=== PATIENT | female | born 1960 | race Caucasian/White ===

== ENCOUNTER 2024-07-01 13:20 | Emergency (ER) | payer OTHER ==
[2024-07-01] MEDS ORDERED: ONDANSETRON 4 MG/2 ML VIAL ONE (15:19)
[2024-07-01] MEDS ORDERED: FAMOTIDINE 20 MG/2 ML VIAL IV ONE (15:19)
[2024-07-01] MEDS ORDERED: NA CHLORIDE 0.9% 1,000 ML ONE (15:20)
[2024-07-01 15:22] LABS: Absolute Eosinophils 0.1 K/uL (0-0.5); Absolute Lymphocytes (CBC) 1.4 K/uL (0.7-4.9); Absolute Monocytes 0.7 K/uL (0.1-1.3); Absolute Neutrophil 8.7 K/uL (1.8-8.0); Basophils % 0.4 % (0-1.3); Eosinophils % 0.6 % (0-4.4); Hematocrit 42.9 % (36.0-45.0); Lymphocytes % 13.1 % (15.3-44.8); MCH 28.9 pg (27.0-35.0); MCHC 32.7 g/dL (32.0-36.0); MCV 88.3 fL (80-100); Monocytes % 6.4 % (3.3-12.3); Neutrophils % 79.5 % (41.7-73.7); Platelets 270 thou/uL (152-406); RBC Red Blood Cell Count 4.85 M/uL (3.86-4.86); Red Cell Distribution Width 12.7 % (12.1-15.2)
[2024-07-01 15:23] LABS: Specific Gravity 1.024 (1.005-1.030); Sqamous Epithelial <5 /HPF (None Seen); Urine Bacteria None Seen /HPF (<20); Urine Bilirubin NEGATIVE (Negative); Urine Blood Negative (Negative); Urine Clarity Clear (Clear); Urine Color Yellow (Yellow); Urine Culture Reflex Order NOT NEEDED; Urine Glucose NEGATIVE (Negative); Urine Ketones 1+ (Negative); Urine Microscopic Reflex YN ORDER UMIC; Urine Mucus Slight /HPF (None Seen); Urine Nitrite NEGATIVE (Negative); Urine Protein NEGATIVE (Negative); Urine RBC <5 /HPF (None Seen); Urine Urobilinogen Normal (Normal); Urine WBC <5 /HPF (<5)
[2024-07-01 15:40] LABS: Albumin 3.4 g/dL (3.4-5.0); Albumin/Globulin Ratio 0.8 (1.1-1.8); Bilirubin Total 0.3 mg/dL (0.2-1.0); Globulin 4.4 g/dL (2.3-3.5); Protein, Total 7.8 g/dL (6.4-8.2); Troponin High Sensitivity 4.1 pg/mL (<58.9)
--- NOTE | 2024-07-01 17:07 | RAD REPORT ---
EXAMINATION: CT Abdomen Pelvis W Contrast CLINICAL INDICATION: Female, 63 years old. ABD PAIN TECHNIQUE: CT abdomen and pelvis was performed, after the administration of IV contrast, [facility]. Axial, sagittal and coronal reconstructions were obtained. One or more of the following dose reduction techniques were used: Automated exposure control, adjustment of the mA and k V according to patient size, and iterative reconstruction. Unless otherwise specified, incidental findings do not require dedicated imaging follow-up. COMPARISON: No prior exam. FINDINGS: LOWER CHEST: The visualized lung bases are clear. LIVER: Normal in size and contour. No focal lesion. BILIARY SYSTEM: Status post cholecystectomy. SPLEEN: Normal size. No focal lesion. PANCREAS: No mass, ductal dilation, or wally-pancreatic fluid. ADRENALS: Normal; no mass. KIDNEYS: Normal size and contour. No hydronephrosis. URINARY BLADDER: Unremarkable. GASTROINTESTINAL TRACT: No evidence of free air, significant intra-abdominal free fluid, bowel obstru ction or abscess. Mild sigmoid diverticulosis. APPENDIX: Normal appendix. LYMPH NODES: No lymphadenopathy. MUSCULOSKELETAL: No acute or suspicious osseous abnormality. ADDITIONAL FINDINGS: None. IMPRESSION: No acute or concerning abnormalities seen in the abdomen or pelvis. Mild sigmoid diverticulosis incidentally noted.
--- NOTE | 2024-07-01 17:09 | EDPHYS ---
Physician Documentation [facility] Name: Milagro Cortez Age: 63 yrs Sex: Female : 1960 Arrival Date: 07/01/2024 Time: 13:20 Bed 8 Private MD: ED Physician Tony Crum HPI: 07/01 15:12 This 63 yrs old Female presents to ER via Wheelchair with complaints of nguyễn Abdominal Pain. 15:12 The patient presents with abdominal pain in the upper abdomen, in the lower abdomen, nguyễn abdominal distention in the upper abdomen, in the lower abdomen. Onset: The symptoms/episode began/occurred just prior to arrival, today. The symptoms radiate to Associated signs and symptoms: Pertinent positives: nausea, vomiting. The symptoms are described as crampy. Modifying factors: The symptoms are alleviated by nothing, the symptoms are aggravated by nothing. Severity of pain: At its worst the pain was moderate severe in the emergency department the pain has improved moderately. The patient has not experienced similar symptoms in the past. Historical: - Allergies: 14:10 Codeine; ss - Home Meds: 14:10 AMUEVITA [Active]; ss - PMHx: 14:10 Arthritis; ss - Immunization history:: Adult Immunizations up to date. - Infectious Disease History:: Denies. - Social history:: Smoking status: unknown. - Family history:: not pertinent. ROS: 15:12 Constitutional: Negative for fever, chills, and weight loss, Eyes: Negative for injury, nguyễn pain, redness, and discharge, ENT: Negative for injury, pain, and discharge, Neck: Negative for injury, pain, and swelling, Cardiovascular: Negative for chest pain, palpitations, and edema, Respiratory: Negative for shortness of breath, cough, wheezing, and pleuritic chest pain, Back: Negative for injury and pain, : Negative for injury, bleeding, discharge, and swelling, MS/Extremity: Negative for injury and deformity, Skin: Negative for injury, rash, and discoloration, Neuro: Negative for headache, weakness, numbness, tingling, and seizure, Psych: Negative for depression, anxiety, suicide ideation, homicidal ideation, and hallucinations, Allergy/Immunology: Negative for hives, rash, and allergies, Endocrine: Negative for neck swelling, polydipsia, polyuria, polyphagia, and marked weight changes, Hematologic/Lymphatic: Negative for swollen nodes, abnormal bleeding, and unusual bruising, 15:12 Abdomen/GI: Positive for abdominal pain, nausea and vomiting, of the right upper quadrant, left upper quadrant, right lower quadrant and left lower quadrant, Exam: 15:12 Constitutional: This is a well developed, well nourished patient who is awake, alert, nguyễn and in no acute distress. Head/Face: Normocephalic, atraumatic. Eyes: Pupils equal round and reactive to light, extra-ocular motions intact. Lids and lashes normal. Conjunctiva and sclera are non-icteric and not injected. Cornea within normal limits. Periorbital areas with no swelling, redness, or edema. ENT: Nares patent. No nasal discharge, no septal abnormalities noted. Tympanic membranes are normal and external auditory canals are clear. Oropharynx with no redness, swelling, or masses, exudates, or evidence of obstruction, uvula midline. Mucous membranes moist. Neck: Trachea midline, no thyromegaly or masses palpated, and no cervical lymphadenopathy. Supple, full range of motion without nuchal rigidity, or vertebral point tenderness. No Meningismus. Chest/axilla: Normal chest wall appearance and motion. Nontender with no deformity. No lesions are appreciated. Cardiovascular: Regular rate and rhythm with a normal S1 and S2. No gallops, murmurs, or rubs. Normal PMI, no JVD. No pulse deficits. Respiratory: Lungs have equal breath sounds bilaterally, clear to auscultation and percussion. No rales, rhonchi or wheezes noted. No increased work of breathing, no retractions or nasal flaring. Back: No spinal tenderness. No costovertebral tenderness. Full range of motion. Female : Normal external genitalia. Skin: Warm, dry with normal turgor. Normal color with no rashes, no lesions, and no evidence of cellulitis. MS/ Extremity: Pulses equal, no cyanosis. Neurovascular intact. Full, normal range of motion. Neuro: Awake and alert, GCS 15, oriented to person, place, time, and situation. Cranial nerves II-XII grossly intact. Motor strength 5/5 in all extremities. Sensory grossly intact. Cerebellar exam normal. Normal gait. Psych: Awake, alert, with orientation to person, place and time. Behavior, mood, and affect are within normal limits. 15:12 Abdomen/GI: Inspection: abdomen appears normal, Bowel sounds: normal, Palpation: mild abdominal tenderness, in the right lower quadrant and left lower quadrant, Liver: no appreciated palpable abnormalities, Hernia: not appreciated, 16:39 ECG was reviewed by the Attending Physician. [facility] Vital Signs: 14:09 BP 167 / 87; Pulse 99; Resp 16; Temp 98; Pulse Ox 99% ; ss 15:30 BP 148 / 70; Pulse 79; Resp 16; Pulse Ox 98% ; cm10 16:30 BP 151 / 76; Pulse 91; Resp 16; Pulse Ox 100% on R/A; cm10 17:00 BP 144 / 77; Pulse 90; Resp 16; Pulse Ox 98% on R/A; cm10 17:29 BP 144 / 77; Pulse 87; Resp 16; Pulse Ox 99% on R/A; ll1 MDM: 13:26 Medical Screening Exam initiated nguyễn 15:15 Differential diagnosis: AAA, appendicitis, bowel obstruction, diverticulitis, nguyễn gastritis, gastroesophageal reflux disease, GI Bleed, Mesenteric ischemia or infarction, non-specific abd pain, pancreatitis, Peptic Ulcer Disease, Peritonitis, Pyelonephritis, Ureterolithiasis, urinary tract infection. Data reviewed: vital signs, nurses notes, EMS record, lab test result(s), EKG, radiologic studies, CT scan, plain films. Consideration of Admission/Observation Escalation of care including admission/observation considered. I considered the following discharge prescriptions or medication management in the emergency department Medications were administered in the Emergency Department. See MAR. Independent interpretation of the following test(s) in the Emergency Department EKG: See my EKG interpretation above. Historians other than the Patient:. 07/01 13:27 Order name: CBC with Diff; Complete Time: 15:45 [facility] 07/01 13:27 Order name: CMP; Complete Time: 15:45 [facility] 07/01 13:27 Order name: Lipase; Complete Time: 15:45 [facility] 07/01 13:27 Order name: Urinalysis w/ reflexes; Complete Time: 15:31 [facility] 07/01 13:27 Order name: Troponin High Sensitivity; Complete Time: 15:45 [facility] 07/01 13:27 Order name: CT Abd/Pelvis - IV Contrast Only [facility] 07/01 13:27 Order name: EKG; Complete Time: 13:27 [facility] 07/01 13:27 Order name: IV Saline Lock; Complete Time: 15:15 [facility] 07/01 13:27 Order name: Labs collected and sent; Complete Time: 15:15 [facility] 07/01 13:27 Order name: EKG - Nurse/Tech; Complete Time: 15:43 [facility] EC:39 Rate is 71 beats/min. Rhythm is regular. QRS [place] is Normal. GA interval is normal. QRS nguyễn interval is normal. QT interval is normal. No Q waves. T waves are Normal. No ST changes noted. Clinical impression: Normal ECG and No evidence of ischemia. Interpreted by me. Reviewed by me. Administered Medications: 15:27 Drug: Famotidine IVP 20 mg IVP once; dilute with 10 mL 0.9% NaCl; give over 2 minutes cm10 Route: IVP; Site: right forearm; 16:20 Follow up: Response: No adverse reaction cm10 15:27 Drug: Ondansetron IVP 4 mg IVP once; over 2 minutes Route: IVP; Site: right forearm; cm10 17:29 Follow up: Response: No adverse reaction ll1 15:27 Drug: NS 0.9% IV 1000 ml IV at 1 bolus Per protocol; to be given as a bolus over 60 cm10 minutes Route: IV; Rate: 1 bolus; Site: right forearm; 17:10 Follow up: Response: No adverse reaction; IV Status: Completed infusion; IV Intake: cm10 1000ml 17:29 Not Given (Patient Refused): morphineor iv 4 mg IVP once over 4 mins ll1 Disposition Summary: 07/01/24 17:08 Discharge Ordered Notes: Location: Home nguyễn Problem: new nguyễn Symptoms: have improved nguyễn Condition: Stable nguyễn Diagnosis - Abdominal pain, Generalized nguyễn Followup: nguyễn - With: Private Physician - When: 2 - 3 days - Reason: Recheck today's complaints, Continuance of care, Re-evaluation by your physician Followup: nguyễn - With: Stevie Pearce MD - When: 2 - 3 days - Reason: Recheck today's complaints, Re-evaluation by your physician Discharge Instructions: - Discharge Summary Sheet nguyễn - Abdominal Pain, Adult nguyễn - Abdominal Pain, Adult, [id number] nguyễn Forms: - Medication Reconciliation Form nguyễn - Antibiotic Education nguyễn - Prescription Opioid Use nguyễn - Patient Portal Instructions nguyễn - Leadership Thank You Letter nguyễn Prescriptions: - ondansetron 4 mg Oral Tablet,disintegrating - take 1 tablet ORAL route every 8 hours for 5 days as needed for nausea and nguyễn vomiting; 20 tablet; Refills: 0, Product Selection Permitted - Pepcid 20 mg Oral Tablet - take 1 tablet ORAL route every 12 hours for 10 days; 20 tablet; Refills: 0, [facility] Product Selection Permitted - dicyclomine 20 mg Oral tablet - take 1 tablet ORAL route 4 times per day; 28 tablet; Refills: 0, Product [facility] Selection Permitted Signatures: Dispatcher [employer] Tony Bob MD MD cha Blanchard, [place], MACIEL RN ss Starr Oropeza RN RN cm10 Corrina Milligan RN ll1
--- NOTE | 2024-07-01 17:09 | ER ---
Nurse's Notes [facility] Name: Milagro Cortez Age: 63 yrs Sex: Female : 1960 Arrival Date: 07/01/2024 Time: 13:20 Bed 8 Private MD: Diagnosis: Abdominal pain, Generalized Presentation: 07/01 14:09 Chief complaint: Patient states: "I HAD TUMMY GAS AFTER LUNCH, BUT I'M FEELING ss BETTER.". Coronavirus screen: At this time, the client does not indicate any symptoms associated with coronavirus-19. Ebola Screen: No symptoms or risks identified at this time. Initial Sepsis Screen: Does the patient meet any 2 criteria? No. Patient's initial sepsis screen is negative. Does the patient have a suspected source of infection? No. Patient's initial sepsis screen is negative. Risk Assessment: Do you want to hurt yourself or someone else? Patient reports no desire to harm self or others. Onset of symptoms was July 01, 2024 at 12:30. 14:09 Method Of Arrival: Wheelchair ss 14:09 Acuity: KJ 3 ss Triage Assessment: 14:10 General: Appears in no apparent distress. Behavior is cooperative, appropriate for age, ss anxious. Pain: Complains of pain in right lower quadrant and left lower quadrant. EENT: No deficits noted. Neuro: No deficits noted. Cardiovascular: No deficits noted. Respiratory: No deficits noted. GI: Reports lower abdominal pain. : No signs and/or symptoms were reported regarding the genitourinary system. Derm: No deficits noted. Musculoskeletal: No deficits noted. Historical: - Allergies: 14:10 Codeine; ss - Home Meds: 14:10 AMUEVITA [Active]; ss - PMHx: 14:10 Arthritis; ss - Immunization history:: Adult Immunizations up to date. - Infectious Disease History:: Denies. - Social history:: Smoking status: unknown. - Family history:: not pertinent. Screenin:30 [facility] ED Fall Risk Assessment (Adult) History of falling in the last 3 months, ll1 including since admission No falls in past 3 months (0 pts) Confusion or Disorientation No (0 pts) Intoxicated or Sedated No (0 pts) Impaired Gait No (0 pts) Mobility Assist Device Used No (0 pt) Altered Elimination No (0 pt) Score/Fall Risk Level 0 - 2 = Low Risk Maintained a safe environment, Hourly rounding (assess needs \\T\\ fall precautionary measures) done. Abuse screen: Denies threats or abuse. Nutritional screening: No deficits noted. Tuberculosis screening: No symptoms or risk factors identified. Assessment: 14:37 Reassessment: Patient and/or family updated on plan of care and expected duration. Pain ll1 level reassessed. 16:09 Reassessment: Patient appears in no apparent distress at this time. No changes from cm10 previously documented assessment. Patient and/or family updated on plan of care and expected duration. Pain level reassessed. Patient is alert, oriented x 3, equal unlabored respirations, skin warm/dry/pink. Patient states feeling better. Patient states symptoms have improved. 17:30 Reassessment: No changes from previously documented assessment. Patient and/or family ll1 updated on plan of care and expected duration. Pain level reassessed. 17:30 GI: Bowel sounds present X 4 quads. Abd is soft and non tender X 4 quads. ll1 Vital Signs: 14:09 BP 167 / 87; Pulse 99; Resp 16; Temp 98; Pulse Ox 99% ; ss 15:30 BP 148 / 70; Pulse 79; Resp 16; Pulse Ox 98% ; cm10 16:30 BP 151 / 76; Pulse 91; Resp 16; Pulse Ox 100% on R/A; cm10 17:00 BP 144 / 77; Pulse 90; Resp 16; Pulse Ox 98% on R/A; cm10 17:29 BP 144 / 77; Pulse 87; Resp 16; Pulse Ox 99% on R/A; ll1 ED Course: 13:23 Patient arrived in ED. mr 13:26 Tony Crum MD is Attending Physician. nguyễn 14:10 Triage completed. ss 14:10 Arm band placed on. ss 14:33 Patient placed in an exam room, on a stretcher. ll1 15:14 Starr Oropeza, RN is Primary Nurse. cm10 15:15 Initial lab(s) drawn, by ga, sent to lab. Urine collected: clean catch specimen. cm10 Inserted saline lock: 20 gauge in right forearm, using aseptic technique. Blood collected. Flushed with 10 mL NS. 15:15 Troponin High Sensitivity Sent. cm10 15:15 CBC with Diff Sent. cm10 15:15 CMP Sent. cm10 15:15 Lipase Sent. cm10 15:15 Urinalysis w/ reflexes Sent. cm10 16:54 CT Abd/Pelvis - IV Contrast Only In Process Unspecified. EDPA 17:08 Stevie Pearce MD is Referral Physician. [facility] 17:30 No provider procedures requiring assistance completed. IV discontinued, intact, ll1 bleeding controlled, No redness/swelling at site. Pressure dressing applied. 17:31 Patient has correct armband on for positive identification. Provided Education on: ll1 return to ED for worsening symptoms. Administered Medications: 15:27 Drug: Famotidine IVP 20 mg IVP once; dilute with 10 mL 0.9% NaCl; give over 2 minutes cm10 Route: IVP; Site: right forearm; 16:20 Follow up: Response: No adverse reaction cm10 15:27 Drug: Ondansetron IVP 4 mg IVP once; over 2 minutes Route: IVP; Site: right forearm; cm10 17:29 Follow up: Response: No adverse reaction ll1 15:27 Drug: NS 0.9% IV 1000 ml IV at 1 bolus Per protocol; to be given as a bolus over 60 cm10 minutes Route: IV; Rate: 1 bolus; Site: right forearm; 17:10 Follow up: Response: No adverse reaction; IV Status: Completed infusion; IV Intake: cm10 1000ml 17:29 Not Given (Patient Refused): morphineor iv 4 mg IVP once over 4 mins ll1 Medication: 17:31 VIS not applicable for this client. ll1 Intake: 17:10 IV: 1000ml; Total: 1000ml. cm10 Outcome: 17:08 Discharge ordered by . [facility] 17:30 Discharged to home ambulatory, ll1 17:30 Condition: stable 17:30 Discharge instructions given to patient, Instructed on discharge instructions, follow up and referral plans. medication usage, Demonstrated understanding of instructions, follow-up care, medications, Prescriptions given X 3, 17:31 Patient left the ED. ll1 Signatures: Dispatcher [employer] EDPA Tony Crum MD MD cha Rivera, Mary, Reg Reg Salma Harris, RN RN Corrina Fisher RN RN ll1 Starr Oropeza RN RN cm10
[2024-07-01 17:47] VITALS: TEMP 98
[2024-07-01 17:59] VITALS: BP 144/77
[2024-07-01 18:02] VITALS: O2SAT 99
--- NOTE | 2024-07-02 08:52 | EKG ---
Test Date: 2024-07-01 Test Time: 15:39:44 Clinical Rehab Specialist: AM MEASUREMENT RESULTS: Intervals: Rate: 71 TX: 162 QRSD: 78 QT: 420 QTc: 456 [place]: P: 69 TX: 162 QRS: 11 T: 16 INTERPRETIVE STATEMENTS: Normal sinus rhythm Normal ECG Compared to ECG 01/17/2006 07:40:16 No significant changes Electronically Signed On 07-02-24 08:50:58 OPTICAL SYSTEMS ENGINEER by Yasir Shearer
== END 2024-07-01 17:31 | disposition home or self-care (01) ==
LOC: ER 13:20
DX: R10.84 Generalized abdominal pain (principal); R11.2 Nausea with vomiting, unspecified
CPT/HCPCS: 93005; 85025; 81001; 36415; 84484; 83690; 80053; 74177; Q9967; J2405; J7030; 96361; 96374; 96375; 99284

== ENCOUNTER 2024-07-12 08:41 | Emergency (ER) | payer OTHER ==
[2024-07-12] MEDS ORDERED: ONDANSETRON 4 MG/2 ML VIAL ONE (09:34)
[2024-07-12] MEDS ORDERED: NA CHLORIDE 0.9% 1,000 ML ONE (09:35)
[2024-07-12] MEDS ORDERED: FENTANYL CITR 100 MCG/2 ML ONE (09:35)
--- NOTE | 2024-07-12 09:49 | RAD REPORT ---
EXAM: CT Head Brain Wo Cont HISTORY: HEADACHE COMPARISON: None TECHNIQUE: Multiple contiguous axial images were obtained for a CT of the brain without contrast. Sag ittal and coronal reformats were performed. One or more of the following dose reduction techniques were used: Automated exposure control, adjus tment of the mA and kV according to patient size, and iterative reconstruction. Unless otherwise specified, incidental findings do not require dedicated imaging follow-up. FINDINGS: No evidence of hydrocephalus, intracranial hemorrhage, or extra-axial fluid collection. The brain is normal in morphology. The calvarium is intact. The visualized paranasal sinuses and mastoid air cells are essentially clear . IMPRESSION: No evidence of acute intracranial abnormality.
[2024-07-12 09:59] LABS: Absolute Eosinophils 0.1 K/uL (0-0.5); Absolute Lymphocytes (CBC) 1.3 K/uL (0.7-4.9); Absolute Monocytes 0.5 K/uL (0.1-1.3); Absolute Neutrophil 3.3 K/uL (1.8-8.0); Basophils % 0.6 % (0-1.3); Eosinophils % 1.1 % (0-4.4); Hematocrit 42.2 % (36.0-45.0); Hemoglobin 13.9 g/dL (12.0-15.0); Lymphocytes % 25.2 % (15.3-44.8); MCH 29.1 pg (27.0-35.0); MPV 7.8 fL (7.6-11.3); Monocytes % 10.1 % (3.3-12.3); Platelets 289 thou/uL (152-406); RBC Red Blood Cell Count 4.79 M/uL (3.86-4.86); Red Cell Distribution Width 12.7 % (12.1-15.2)
[2024-07-12 10:00] LABS: PT Prothrombin Time 10.3 SECONDS (9.4-12.5); Protime INR 0.92
[2024-07-12 10:25] LABS: ALT/SGPT 18 U/L (13-56); AST/SGOT 16 U/L (15-37); Albumin 3.3 g/dL (3.4-5.0); Albumin/Globulin Ratio 0.7 (1.1-1.8); Alkaline Phosphatase 92 U/L (45-117); Anion Gap 7.7 mEq/L (5.0-15.0); BUN Blood Urea Nitrogen 10 mg/dL (7-18); Bicarbonate 26 mEq/L (21-32); Bilirubin Total 0.4 mg/dL (0.2-1.0); Globulin 4.5 g/dL (2.3-3.5); Glomerular Filtration Rate 100 ml/min (=/>90); Glucose Level 107 mg/dL (74-106); Magnesium 2.1 mg/dL (1.6-2.4); NT PRO-BNP 245 pg/mL (<125); Potassium 3.7 mEq/L (3.5-5.1); Protein, Total 7.8 g/dL (6.4-8.2); Sodium Level 136 mEq/L (136-145); Troponin High Sensitivity 3.7 pg/mL (<58.9)
[2024-07-12 10:27] LABS: Bilirubin Direct < 0.2 mg/dL (0-0.2); Bilirubin Indirect, Calculated 0.2 mg/dL (0.2-0.8)
--- NOTE | 2024-07-12 10:30 | RAD REPORT ---
EXAMINATION: ONE VIEW CHEST XR CLINICAL INDICATION: Female, 63 years old.,COUGH TECHNIQUE: Frontal chest projection is submitted. Examination is limited by patient positioning and t echnique. COMPARISON: No prior exam. FINDINGS: Right central mid to lower lung patchy airspace opacity. Trace effusion along the right minor fissure . No pneumothorax or other sizable effusion. The heart is normal in size. Mediastinal contours are unremarkable. IMPRESSION: Right central mid to lower lung airspace opacity, concerning for pneumonia.
[2024-07-12 11:45] LABS: Specific Gravity 1.017 (1.005-1.030); Sqamous Epithelial <5 /HPF (None Seen); Urine Bacteria None Seen /HPF (<20); Urine Bilirubin NEGATIVE (Negative); Urine Blood Negative (Negative); Urine Clarity Extremely Turbid (Clear); Urine Color Light-Yellow (Yellow); Urine Culture Reflex Order NOT NEEDED; Urine Glucose NEGATIVE (Negative); Urine Ketones 1+ (Negative); Urine Microscopic Reflex YN ORDER UMIC; Urine Mucus Slight /HPF (None Seen); Urine Nitrite NEGATIVE (Negative); Urine Protein NEGATIVE (Negative); Urine RBC <5 /HPF (None Seen); Urine Urobilinogen Normal (Normal); Urine WBC <5 /HPF (<5)
[2024-07-12] MEDS ORDERED: METOCLOPRAMIDE 10 MG/2mL INJ ONE (12:04)
[2024-07-12] MEDS ORDERED: KETOROLAC 30 MG/ML INJ ONE (12:04)
[2024-07-12] MEDS ORDERED: AMLODIPINE 5 MG TAB ONE ×2 (12:04→12:24)
[2024-07-12] MEDS ORDERED: DIPHENHYDRAMINE 50 MG/ML VIAL ONE (12:04)
[2024-07-12] MEDS ORDERED: Levofloxacin500mg IV 500 MG/100 ML BAG IV ONE (12:05)
--- NOTE | 2024-07-12 12:13 | RAD REPORT ---
EXAM: CT Chest For Pe Angio TECHNIQUE: CT angiogram of the chest was performed following intravenous contrast administration, inc luding sagittal and coronal as well as maximum intensity projection reformats. One or more of the following dose reduction techniques were used: Automated exposure control, adjustment of the mA and k V according to patient size, and iterative reconstruction. Unless otherwise specified, incidental findings do not require dedicated imaging follow-up. INDICATION: [facility] MAIN Congestion;Cough Bed Name: 18 N COMPARISON: Chest radiograph of earlier the same day. FINDINGS: LINES/TUBES: None. PULMONARY ARTERIES: Main pulmonary arteries are normal in caliber. No filling defects within the pul monary arteries to suggest pulmonary embolus. LUNGS AND AIRWAYS: Biapical scarring more pronounced on the right. Patchy consolidative opacities wit h limited peripheral air bronchogram and mild bronchiectasis in the right middle lobe. Confluent nodular and tree-in-bud opacities in the posterior right lower lobe as well. Minimal left lingular at electasis. PLEURA: Trace right layering pleural effusion. No pneumothorax. HEART AND MEDIASTINUM: The visualized thyroid gland is normal. Mildly prominent right hilar lymph nod es, up to 1.2 cm in short axis. Less prominent mediastinal lymph nodes. These are favored to be reactive. Heart is unremarkable. No pericardial effusion. SOFT TISSUES AND BONES: No acute osseous abnormality. No significant soft tissue finding. UPPER ABDOMEN: Unremarkable. IMPRESSION: No evidence of acute central pulmonary emboli. Patchy right middle lobe and posterior right lower lobe airspace opacities as above, concerning for p neumonia. Trace layering right pleural effusion. Suspected background changes of atelectasis and bronchiectasis in the right middle lobe may be more c hronic.
--- NOTE | 2024-07-12 12:19 | ER ---
Nurse's Notes [facility] Name: Milagro Cortez Age: 63 yrs Sex: Female : 1960 Arrival Date: 07/12/2024 Time: 08:41 Bed 18 Private MD: Diagnosis: Essential (primary) hypertension;Cough;Headache;UTI/ Urinary tract infection, site not specified;Pneumonia due to other specified bacteria;Pleural effusion, not elsewhere classified-right;Bronchiectasis, uncomplicated Presentation: 07/12 09:13 Chief complaint: Patient states: Sent home from work due to high blood pressure reading ss of 160/140. Pt reports her BP last night was 137/77 and in the middle of the night it woke her up and was 158/77. Pt c/o right sided headache since yesterday at 0700. Coronavirus screen: Client denies travel out of the [place] in the last 14 days. Ebola Screen: Patient denies exposure to infectious person. Patient denies travel to an Ebola-affected area in the 21 days before illness onset. Initial Sepsis Screen: Does the patient meet any 2 criteria? No. Patient's initial sepsis screen is negative. Does the patient have a suspected source of infection? No. Patient's initial sepsis screen is negative. Risk Assessment: Do you want to hurt yourself or someone else? Patient reports no desire to harm self or others. Onset of symptoms was July 11, 2024. 09:13 Method Of Arrival: Wheelchair ss 09:13 Acuity: KJ 3 ss Historical: - Allergies: 09:17 Codeine; ss - PMHx: 09:17 Arthritis; ss - Immunization history:: Client reports having NOT received the Covid vaccine. - Infectious Disease History:: Denies. - Social history:: Smoking status: Patient denies any tobacco usage or history of. Screenin:08 [facility] ED Fall Risk Assessment (Adult) History of falling in the last 3 months, hb including since admission No falls in past 3 months (0 pts) Confusion or Disorientation No (0 pts) Intoxicated or Sedated No (0 pts) Impaired Gait No (0 pts) Mobility Assist Device Used No (0 pt) Altered Elimination No (0 pt) Score/Fall Risk Level 0 - 2 = Low Risk Oriented to surroundings, Maintained a safe environment, Educated pt \T\ family on fall prevention, incl call for assistance when getting out of bed. Abuse screen: Denies threats or abuse. Denies injuries from another. Nutritional screening: No deficits noted. Tuberculosis screening: No symptoms or risk factors identified. Assessment: 10:08 General: Appears in no apparent distress. uncomfortable, Behavior is calm, cooperative. hb Pain: Pain currently is 7 out of 10 on a pain scale. Neuro: Level of Consciousness is awake, alert, obeys commands, Oriented to person, place, time, situation, Reports headache. Cardiovascular: Patient's skin is warm and dry. Respiratory: Respiratory effort is even, unlabored, Respiratory pattern is regular, symmetrical. GI: Reports nausea. : No signs and/or symptoms were reported regarding the genitourinary system. EENT: No signs and/or symptoms were reported regarding the EENT system. Derm: Skin is pink, warm \T\ dry. Musculoskeletal: No signs and/or symptoms reported regarding the musculoskeletal system. 12:36 Reassessment: Patient appears in no apparent distress at this time. Patient and/or hb family updated on plan of care and expected duration. Pain level reassessed. Patient is alert, oriented x 3, equal unlabored respirations, skin warm/dry/pink. 13:15 Reassessment: Patient appears in no apparent distress at this time. Patient and/or hb family updated on plan of care and expected duration. Pain level reassessed. Patient is alert, oriented x 3, equal unlabored respirations, skin warm/dry/pink. Vital Signs: 09:13 BP 169 / 91; Pulse 87; Resp 17; Temp 98(TE); Pulse Ox 100% on R/A; Weight 72.57 kg; ss Height 5 ft. 4 in. ; Pain 7/10; 09:20 BP 160 / 84; ss 10:00 BP 162 / 83; Pulse 81; Resp 16; Pulse Ox 100% on R/A; Pain 7/10; hb 12:36 BP 159 / 107; Pulse 86; Resp 16; Pulse Ox 100% on R/A; hb 13:15 BP 146 / 86; Pulse 69; Resp 16; Pulse Ox 99% on R/A; hb 09:13 Body Mass Index 27.46 (72.57 kg, 162.56 cm) ss 09:13 Pain Scale: Adult ss 10:00 Pain Scale: Adult hb Kaylee Coma Score: 11:15 Eye Response: spontaneous(4). Motor Response: obeys commands(6). Verbal Response: nguyễn oriented(5). Total: 15. ED Course: 08:45 Patient arrived in ED. mg5 08:53 Tony Crum MD is Attending Physician. nguyễn 09:06 XRAY Chest (1 view) In Process Unspecified. EDMS 09:13 CT Head Brain wo Cont In Process Unspecified. EDMS 09:17 Triage completed. ss 09:17 Arm band placed on right wrist. ss 09:25 Swetha Rueda, RN is Primary Nurse. hb 09:52 Initial lab(s) drawn, by md, sent to lab. Inserted saline lock: 20 gauge in right zm forearm, using aseptic technique. Blood collected. Flushed with 10 mL NS. 09:53 EKG done, by ED staff, reviewed by Tony Crum MD. zm 09:53 Basic Metabolic Panel Sent. zm 09:53 CBC with Diff Sent. zm 09:53 LFT's Sent. zm 09:53 Magnesium Sent. zm 09:53 NT PRO-BNP Sent. zm 09:53 PT-INR Sent. zm 09:53 Troponin HS Sent. zm 10:08 Patient has correct armband on for positive identification. Placed in gown. Bed in low hb position. Call light in reach. Side rails up X 1. Provided Education on: tests, result times, use of call light. Client placed on continuous cardiac and pulse oximetry monitoring. NIBP monitoring applied. residential monitor on. Pulse ox on. NIBP on. 10:08 No provider procedures requiring assistance completed. hb 11:43 CT Chest For PE Angio In Process Unspecified. EDMS 12:19 Cornel Ott DO is Referral Physician. nguyễn 12:19 Kike Velarde MD is Referral Physician. nguyễn 13:15 IV discontinued, intact, bleeding controlled, No redness/swelling at site. Pressure hb dressing applied. Administered Medications: 09:53 Drug: NS 0.9% IV 500 ml IV at bolus once; to be given as a bolus over 30 minutes Route: hb IV; Rate: bolus; Site: right antecubital; 10:25 Follow up: Response: No adverse reaction; IV Status: Completed infusion; IV Intake: hb 500ml 09:53 Drug: Ondansetron IVP 4 mg IVP once; over 2 minutes Route: IVP; Site: right antecubital;hb 10:20 Follow up: Response: No adverse reaction hb 09:54 Drug: fentaNYL (PF) IVP 50 mcg IVP once Route: IVP; Site: right antecubital; hb 10:12 Drug: fentaNYL (PF) IVP 50 mcg IVP once Route: IVP; Site: right antecubital; hb 10:45 Follow up: Response: No adverse reaction hb 11:25 Drug: NS 0.9% IV 500 ml 500 ml IV at 1 bolus once; to be given as a bolus over 30 hb minutes Volume: 500 ml; Route: IV; Rate: 1 bolus; Site: right antecubital; 12:00 Follow up: Response: No adverse reaction; IV Status: Completed infusion; IV Intake: hb 500ml 12:32 Drug: Ketorolac IVP 15 mg IVP once Route: IVP; Site: right antecubital; hb 13:00 Follow up: Response: No adverse reaction hb 12:32 Drug: diphenhydrAMINE IVP 25 mg IVP once Route: IVP; Site: right antecubital; hb 13:00 Follow up: Response: No adverse reaction hb 12:32 Drug: metoCLOPramide IVP 10 mg IVP once; over 1 to 2 minutes Route: IVP; Site: right hb antecubital; 13:00 Follow up: Response: No adverse reaction hb 12:32 Drug: Norvasc PO 5 mg PO once Route: PO; hb 13:45 Follow up: Response: No adverse reaction hb 12:33 Drug: levofloxacin IVPB 500 mg 100 ml IVPB once over 60 mins Volume: 100 ml; Route: hb IVPB; Infused Over: 60 mins; Site: right antecubital; 13:30 Follow up: Response: No adverse reaction; IV Status: Completed infusion; IV Intake: hb 100ml Medication: 10:08 VIS not applicable for this client. hb Intake: 10:25 IV: 500ml; Total: 500ml. hb 12:00 IV: 500ml; Total: 1000ml. hb 13:30 IV: 100ml; Total: 1100ml. hb Outcome: 12:19 Discharge ordered by . nguyễn 13:31 Discharged to home via wheelchair, with significant other, hb 13:31 Condition: stable 13:31 Discharge instructions given to patient, significant other, Instructed on discharge instructions, follow up and referral plans. medication usage, Demonstrated understanding of instructions, follow-up care, medications, Prescriptions given X 3, 13:32 Patient left the ED. Signatures: Dispatcher [employer] EDTony Shi MD MD cha Blanchard, Shelby, RN RN ss Baxter, Heather, RN RN hb Martinez, Zaina zm [facility]5
--- NOTE | 2024-07-12 12:20 | EDPHYS ---
Physician Documentation [facility] Name: Milagro Cortez Age: 63 yrs Sex: Female : 1960 Arrival Date: 07/12/2024 Time: 08:41 Bed 18 Private MD: [facility]INA Physician Tony Crum HPI: 07/12 11:13 This 63 yrs old Female presents to ER via Wheelchair with complaints of High nguyễn Blood Pressure, Headache. 11:13 The patient has elevated blood pressure and discovered this at home, during work nguyễn physical. Onset: The symptoms/episode began/occurred 3 day(s) ago. Modifying factors: The symptoms are aggravated by activity, The symptoms are alleviated by remaining still. Associated signs and symptoms: Pertinent positives: nausea. Severity of symptoms: At its worst the blood pressure was mild, in the emergency department the blood pressure is unchanged. The patient has not experienced similar symptoms in the past. Historical: - Allergies: 09:17 Codeine; ss - PMHx: :17 Arthritis; ss - Immunization history:: Client reports having NOT received the Covid vaccine. - Infectious Disease History:: Denies. - Social history:: Smoking status: Patient denies any tobacco usage or history of. ROS: 11:14 Constitutional: Negative for fever, chills, and weight loss, Eyes: Negative for injury, nguyễn pain, redness, and discharge, ENT: Negative for injury, pain, and discharge, Neck: Negative for injury, pain, and swelling, Cardiovascular: Negative for chest pain, palpitations, and edema, Respiratory: Negative for shortness of breath, cough, wheezing, and pleuritic chest pain, Abdomen/GI: Negative for abdominal pain, nausea, vomiting, diarrhea, and constipation, Back: Negative for injury and pain, : Negative for injury, bleeding, discharge, and swelling, MS/Extremity: Negative for injury and deformity, Skin: Negative for injury, rash, and discoloration, Psych: Negative for depression, anxiety, suicide ideation, homicidal ideation, and hallucinations, Allergy/Immunology: Negative for hives, rash, and allergies, Endocrine: Negative for neck swelling, polydipsia, polyuria, polyphagia, and marked weight changes, Hematologic/Lymphatic: Negative for swollen nodes, abnormal bleeding, and unusual bruising, 11:14 Neuro: Positive for headache, weakness, Exam: 11:14 Constitutional: This is a well developed, well nourished patient who is awake, alert, nguyễn and in no acute distress. Head/Face: Normocephalic, atraumatic. Eyes: Pupils equal round and reactive to light, extra-ocular motions intact. Lids and lashes normal. Conjunctiva and sclera are non-icteric and not injected. Cornea within normal limits. Periorbital areas with no swelling, redness, or edema. ENT: Nares patent. No nasal discharge, no septal abnormalities noted. Tympanic membranes are normal and external auditory canals are clear. Oropharynx with no redness, swelling, or masses, exudates, or evidence of obstruction, uvula midline. Mucous membranes moist. Neck: Trachea midline, no thyromegaly or masses palpated, and no cervical lymphadenopathy. Supple, full range of motion without nuchal rigidity, or vertebral point tenderness. No Meningismus. Chest/axilla: Normal chest wall appearance and motion. Nontender with no deformity. No lesions are appreciated. Respiratory: Lungs have equal breath sounds bilaterally, clear to auscultation and percussion. No rales, rhonchi or wheezes noted. No increased work of breathing, no retractions or nasal flaring. Abdomen/GI: Soft, non-tender, with normal bowel sounds. No distension or tympany. No guarding or rebound. No evidence of tenderness throughout. Back: No spinal tenderness. No costovertebral tenderness. Full range of motion. Skin: Warm, dry with normal turgor. Normal color with no rashes, no lesions, and no evidence of cellulitis. 11:14 Cardiovascular: Rate: normal, actual rate is 81 bpm, Rhythm: regular, Pulses: Pulses are 4+ in bilateral radial, brachial, femoral, popliteal, posterior tibial and and dorsalis pedis arteries.. Heart sounds: normal, Edema: is not appreciated, JVD: is not appreciated, 11:14 ECG was reviewed by the Attending Physician. Vital Signs: 09:13 BP 169 / 91; Pulse 87; Resp 17; Temp 98(TE); Pulse Ox 100% on R/A; Weight 72.57 kg; ss Height 5 ft. 4 in. ; Pain 7/10; 09:20 BP 160 / 84; ss 10:00 BP 162 / 83; Pulse 81; Resp 16; Pulse Ox 100% on R/A; Pain 7/10; hb 12:36 BP 159 / 107; Pulse 86; Resp 16; Pulse Ox 100% on R/A; hb 13:15 BP 146 / 86; Pulse 69; Resp 16; Pulse Ox 99% on R/A; hb 09:13 Body Mass Index 27.46 (72.57 kg, 162.56 cm) ss 09:13 Pain Scale: Adult ss 10:00 Pain Scale: Adult hb Macfarlan Coma Score: 11:15 Eye Response: spontaneous(4). Motor Response: obeys commands(6). Verbal Response: nguyễn oriented(5). Total: 15. MDM: 08:53 Medical Screening Exam initiated nguyễn 11:15 Differential diagnosis: cluster headache, cerebral vascular accident, epidural nguyễn hematoma, hypertensive crisis, Malignant HTN, CVA, intracerebral hemorrhage, hypertensive headache, hypoglycemia, hyponatremia, intracerebral hemorrhage, meningitis, migraine, neoplasm, otitis, sinusitis, tension headache, vasomotor headache. Differential Diagnosis: Bronchitis Influenza Pharyngitis. Data reviewed: vital signs, nurses notes, lab test result(s), EKG, radiologic studies, CT scan, plain films. Consideration of Admission/Observation Escalation of care including admission/observation considered. I considered the following discharge prescriptions or medication management in the emergency department Medications were administered in the Emergency Department. See MAR. Independent interpretation of the following test(s) in the Emergency Department EKG: See my EKG interpretation above. Test considered but Not performed: Ultrasound no abd usg. Counseling: I had a detailed discussion with the patient and/or guardian regarding the historical points, exam findings, and any diagnostic results supporting the discharge/admit diagnosis, lab results, radiology results, the need for outpatient follow up, for definitive care, a chipper machine operator, a family practitioner. 07/12 08:54 Order name: Basic Metabolic Panel; Complete Time: 11: [facility] 07/12 08:54 Order name: CBC with Diff; Complete Time: 11: [facility] 07/12 08:54 Order name: LFT's; Complete Time: 11: [facility] 07/12 08:54 Order name: Magnesium; Complete Time: 11: [facility] 07/12 08:54 Order name: NT PRO-BNP; Complete Time: 11: [facility] 07/12 08:54 Order name: PT-INR; Complete Time: 11: [facility] 07/12 08:54 Order name: Troponin HS; Complete Time: 11:04 [facility] 07/12 08:54 Order name: Urinalysis w/ reflexes; Complete Time: 11:49 [facility] 07/12 11:10 Order name: Blood Culture Adult (2) [facility] 07/12 08:54 Order name: XRAY Chest (1 view); Complete Time: 11:04 [facility] 07/12 08:54 Order name: CT Head Brain wo Cont; Complete Time: 11:04 [facility] 07/12 11:10 Order name: CT Chest For PE Angio; Complete Time: 12:17 [facility] 07/12 08:54 Order name: EKG; Complete Time: 08:54 [facility] 07/12 08:54 Order name: Cardiac monitoring; Complete Time: 09:53 [facility] 07/12 08:54 Order name: EKG - Nurse/Tech; Complete Time: 09:53 [facility] 07/12 08:54 Order name: IV Saline Lock; Complete Time: 09:53 [facility] 07/12 08:54 Order name: Labs collected and sent; Complete Time: 09:53 [facility] 07/12 08:54 Order name: O2 Per Protocol; Complete Time: 09:53 [facility] 07/12 08:54 Order name: O2 Sat Monitoring; Complete Time: 09:53 [facility] EC:14 Rate is 79 beats/min. Rhythm is regular. QRS Jackson is Normal. OR interval is normal. QRS nguyễn interval is normal. QT interval is normal. No Q waves. T waves are Normal. No ST changes noted. Clinical impression: NSR w/ Non-specific ST/T Changes and No evidence of ischemia. Interpreted by me. Reviewed by me. Administered Medications: :53 Drug: NS 0.9% IV 500 ml IV at bolus once; to be given as a bolus over 30 minutes Route: hb IV; Rate: bolus; Site: right antecubital; 10:25 Follow up: Response: No adverse reaction; IV Status: Completed infusion; IV Intake: hb 500ml 09:53 Drug: Ondansetron IVP 4 mg IVP once; over 2 minutes Route: IVP; Site: right antecubital;hb 10:20 Follow up: Response: No adverse reaction hb 09:54 Drug: fentaNYL (PF) IVP 50 mcg IVP once Route: IVP; Site: right antecubital; hb 10:12 Drug: fentaNYL (PF) IVP 50 mcg IVP once Route: IVP; Site: right antecubital; hb 10:45 Follow up: Response: No adverse reaction hb 11:25 Drug: NS 0.9% IV 500 ml 500 ml IV at 1 bolus once; to be given as a bolus over 30 hb minutes Volume: 500 ml; Route: IV; Rate: 1 bolus; Site: right antecubital; 12:00 Follow up: Response: No adverse reaction; IV Status: Completed infusion; IV Intake: hb 500ml 12:32 Drug: Ketorolac IVP 15 mg IVP once Route: IVP; Site: right antecubital; hb 13:00 Follow up: Response: No adverse reaction hb 12:32 Drug: diphenhydrAMINE IVP 25 mg IVP once Route: IVP; Site: right antecubital; hb 13:00 Follow up: Response: No adverse reaction hb 12:32 Drug: metoCLOPramide IVP 10 mg IVP once; over 1 to 2 minutes Route: IVP; Site: right hb antecubital; 13:00 Follow up: Response: No adverse reaction hb 12:32 Drug: Norvasc PO 5 mg PO once Route: PO; hb 13:45 Follow up: Response: No adverse reaction hb 12:33 Drug: levofloxacin IVPB 500 mg 100 ml IVPB once over 60 mins Volume: 100 ml; Route: hb IVPB; Infused Over: 60 mins; Site: right antecubital; 13:30 Follow up: Response: No adverse reaction; IV Status: Completed infusion; IV Intake: hb 100ml Disposition Summary: 07/12/24 12:19 Discharge Ordered Notes: Location: Home nguyễn Problem: new nguyễn Symptoms: have improved nguyễn Condition: Stable nguyễn Diagnosis - Essential (primary) hypertension nguyễn - Cough nguyễn - Headache nguyễn - UTI/ Urinary tract infection, site not specified nguyễn - Pneumonia due to other specified bacteria nguyễn - Pleural effusion, not elsewhere classified - right nguyễn - Bronchiectasis, uncomplicated nguyễn Followup: nguyễn - With: Private Physician - When: 2 - 3 days - Reason: Recheck today's complaints, Continuance of care, Re-evaluation by your physician Followup: nguyễn - With: Cornel Ott DO - When: 2 - 3 days - Reason: Recheck today's complaints, Re-evaluation by your physician Followup: nguyễn - With: Kike Velarde MD - When: 2 - 3 days - Reason: Recheck today's complaints, Re-evaluation by your physician Discharge Instructions: - Discharge Summary Sheet nguyễn - Hypertension, Adult nguyễn - Pleural Effusion nguyễn - Urinary Tract Infection, Adult nguyễn - Cool Mist Vaporizer nguyễn - Urinary Tract Infection, Adult, [id number] nguyễn - Hypertension, Adult, [id number] nguyễn - Bronchiectasis nguyễn - Community-Acquired Pneumonia, Adult, [id number] nguyễn - Cough, Adult, Qgjg-[id number]-Vomy nguyễn - How to Take Your Blood Pressure, [id number] nguyễn - Aspirin and Your Heart nguyễn - Cough, Adult nguyễn - Managing Your Hypertension [facility] Forms: - Medication Reconciliation Form [facility] - Antibiotic Education nguyễn - Prescription Opioid Use nguyễn - Patient Portal Instructions [facility] - Leadership Thank You Letter [facility] Prescriptions: - ondansetron 4 mg Oral Tablet,disintegrating - take 1 tablet ORAL route every 8 hours for 5 days prn nausea; 20 tablet; [facility] Refills: 0, Product Selection Permitted - Norvasc 5 mg Oral Tablet - take 1 tablet ORAL route once daily; 20 tablet; Refills: 0, Product Selection nguyễn Permitted - levofloxacin 500 mg Oral tablet - take 1 tablet ORAL route once daily for 10 days begin 07/13; 10 tablet; [facility] Refills: 0, Product Selection Permitted Signatures: Dispatcher [employer] EDTony Shi MD MD cha Blanchard, Shelby, RN RN Swetha Rueda, MACIEL RN Corrections: (The following items were deleted from the chart) 11:11 11:11 Chest For PE Angio+CT.RAD.BRZ ordered. EDMS EDMS 11:11 11:11 BLOOD CULTURE*+BA.LAB.BRZ ordered. EDMS EDMS 11:51 11:51 Urine Culture+BA.LAB.BRZ ordered. EDMS EDMS
[2024-07-12 14:38] VITALS: TEMP 98
[2024-07-12 14:52] VITALS: BP 146/86; O2SAT 99
--- NOTE | 2024-07-15 12:05 | EKG ---
Test Date: 2024-07-12 Test Time: 09:48:32 Law Examiner: HB MEASUREMENT RESULTS: Intervals: Rate: 79 WV: 158 QRSD: 72 QT: 408 QTc: 467 Morrow: P: 58 WV: 158 QRS: 17 T: 25 INTERPRETIVE STATEMENTS: Normal sinus rhythm with sinus arrhythmia Normal ECG Compared to ECG 07/01/2024 15:39:44 No significant changes Electronically Signed On 07-15-24 12:02:15 BRUSH HOLDER INSPECTOR by Yasir Shearer
== END 2024-07-12 13:32 | disposition home or self-care (01) ==
LOC: ER 08:41
DX: I10 Essential (primary) hypertension (principal); N39.0 Urinary tract infection, site not specified; J15.8 Pneumonia due to other specified bacteria; J90 Pleural effusion, not elsewhere classified; J47.9 Bronchiectasis, uncomplicated; R51.9 Headache, unspecified; R05.9 Cough, unspecified; Z28.310 Unvaccinated for COVID-19
CPT/HCPCS: 96365; 96361; 87040 ×2; 85025; 81001; 80048; 36415; 83735; 85610; 80076; 84484; 83880; 70450; 71275; 71045; 96375; 99285; Q9967; J2765; J1200; J3010; J2405; J7030; 93005